=== PATIENT | male | born 1975 | race African-American/Black ===

== ENCOUNTER 2022-10-29 06:19 | Day surgery (SDC) | payer OTHER ==
[~2022-10-29] VITALS: Ht 172.7 cm; Wt 108.9 kg
[2022-10-29] MEDS ORDERED: OXYC1TAB9 PO (21:03)
[2022-10-29] MEDS ORDERED: BACTRIM DS TAB1 EACH PO (21:03)
== END 2022-10-30 01:20 | disposition home or self-care (01) ==
LOC: CIR.AMB 06:19 → O/R 06:19 → SURG 06:19 → EDSTATUS 13:30 → SURG 14:44 → O/R 10-30 01:20 → CIR.AMB 10-30 01:20
PROVIDERS: ATTEND Orthopaedic Surgery Sports Medicine
DX: S86.012A Strain of left Achilles tendon, initial encounter (principal); M76.62 Achilles tendinitis, left leg; Z20.822 Contact with and (suspected) exposure to COVID-19